=== PATIENT | male | born 1975 | race Caucasian/White ===

== ENCOUNTER 2018-05-23 15:04 | Emergency (ER) | payer OTHER ==
[~2018-05-23] VITALS: Ht 175.3 cm; Wt 127.8 kg
[2018-05-23 15:06] VITALS: BP 154/98
[2018-05-23] MEDS ORDERED: LIDOCAINE-MPF 1%, 2ML ONE (15:25)
[2018-05-23] MEDS ORDERED: DIPH,PERTUSS(ACELL),TET VAC/PF 0.5 ML IM-VACC ONE ×2 (15:25→15:30)
[2018-05-23] MEDS ORDERED: LIDOCAINE 1%, 10ML INFIL ONE (15:30)
== END 2018-05-23 16:30 | disposition home or self-care (01) ==
LOC: ED 16:20
DX: S61.211A Laceration without foreign body of left index finger without damage to nail, initial encounter (principal); S61.012A Laceration without foreign body of left thumb without damage to nail, initial encounter; I10 Essential (primary) hypertension; W25.XXXA Contact with sharp glass, initial encounter; Y93.89 Activity, other specified; Y92.009 Unspecified place in unspecified non-institutional (private) residence as the place of occurrence of the external cause; Y99.8 Other external cause status
CPT/HCPCS: 12042; 90471; 90715; 99285